=== PATIENT | male | born 1995 | race African-American/Black ===

== ENCOUNTER 2017-12-28 15:15 | Emergency (ER) | payer MEDICAID ==
[~2017-12-28] VITALS: Ht 177.8 cm; Wt 84.0 kg
[~2017-12-28 15:15] MED LIST: DIVA-18 PO; LAMO100T PO; RISO02 PO
[2017-12-28] MEDS ORDERED: ATOR10TA PO (16:15)
[2017-12-28 17:01] LABS: BASOPHILS % 0.2 % (0.0-2.0); EOSINOPHILS % 0.7 % (0.0-5.0); HEMATOCRIT. 45.4 % (42.0-52.0); HEMOGLOBIN. 15.5 g/dL (14.0-18.0); LYMPHOCYTES % 29.4 % (20.0-50.0); MEAN CORPUSCULAR HEMOGLOBIN 30.9 pg (28.0-32.0); MEAN CORPUSCULAR VOLUME 90.3 fL (80.0-94.0); MEAN PLATELET VOLUME 7.8 fl (7.4-10.4); MONOCYTES % 6.8 % (2.0-8.0); NEUTROPHILS % 62.9 % (40.0-76.0); PLATELET 248 x1000/uL (130-400); RED BLOOD CELL COUNT 5.03 mill/uL (4.7-6.1); RED CELL DISTRIBUTION WIDTH 13.6 % (11.6-14.6)
[2017-12-28 17:07] LABS: CHLORIDE 106 mEq/L (98-107)
[2017-12-28 17:22] LABS: INR 1.2; PROTHROMBIN TIME 12.3 sec (9.4-11.6)
[2017-12-28] MEDS ORDERED: KETOROLAC 30MG/ML VIAL IV STA (18:40)
[2017-12-28] MEDS ORDERED: SODIUM CHLORIDE 0.9% 1,000 ML IV ONE (18:40)
[2017-12-28] MEDS ORDERED: LAMOTRIGINE 100MG TABLET PO STA (19:26)
[2017-12-28] MEDS ORDERED: DIVALPROEX SODIUM 250MG ER TABLET PO ONE (19:30)
[2017-12-28] MEDS ORDERED: LAMOTRIGINE 100MG TABLET PO NR (20:00)
[2017-12-28] MEDS ORDERED: DIVALPROEX SODIUM 500MG ER TABLET PO NR (20:00)
[2017-12-28] MEDS ORDERED: LORAZEPAM 2MG/ML CPJ IV ONE (20:00)
[2017-12-28 21:00] VITALS: BP 135/90
== END 2017-12-28 21:10 | disposition home or self-care (01) ==
LOC: ER 17:03
DX: R07.89 Other chest pain (principal); R03.0 Elevated blood-pressure reading, without diagnosis of hypertension; F41.9 Anxiety disorder, unspecified; R00.0 Tachycardia, unspecified; R94.31 Abnormal electrocardiogram [ECG] [EKG]; G40.909 Epilepsy, unspecified, not intractable, without status epilepticus; J45.909 Unspecified asthma, uncomplicated
CPT/HCPCS: 36415; 71045; 80053; 80165; 83880; 84484; 85025; 85610; 93005; 96361; 96374; 96375; 99285; J1885; J2060; J7030; Z7610

== ENCOUNTER 2018-05-01 11:40 | Emergency (ER) | payer MEDICAID ==
[~2018-05-01] VITALS: Ht 175.3 cm; Wt 82.0 kg
[~2018-05-01 11:40] MED LIST changes: +ATOR10TA PO
[2018-05-01 13:56] VITALS: BP 140/94
== END 2018-05-01 14:32 | disposition home or self-care (01) ==
LOC: ER 11:40
DX: S90.415A Abrasion, left lesser toe(s), initial encounter (principal); L03.116 Cellulitis of left lower limb; G40.909 Epilepsy, unspecified, not intractable, without status epilepticus; E78.00 Pure hypercholesterolemia, unspecified; X58.XXXA Exposure to other specified factors, initial encounter; Y93.01 Activity, walking, marching and hiking; Y92.488 Other paved roadways as the place of occurrence of the external cause
CPT/HCPCS: 99283